=== PATIENT | female | born 1990 | race Caucasian/White ===

== ENCOUNTER → 2018-02-27 | Outpatient (CLI) | payer BC ==
[2018-02-27 17:32] LABS: Anion Gap 11 mmol/L; Blood Urea Nitrogen 3 mg/dL (7-17); Calcium 8.4 mg/dL (8.4-10.2); Carbon Dioxide 23 mmol/L (22-30); Chloride 104 mmol/L (98-107); Glucose 73 mg/dL (74-99); Potassium 4.1 mmol/L (3.5-5.1); Sodium 138 mmol/L (137-145)
== END | disposition home or self-care (01) ==
LOC: LABWHC1 16:52
PROVIDERS: ATTEND Family Medicine
DX: R60.0 Localized edema (principal)
CPT/HCPCS: 36415; 80048

== ENCOUNTER → 2018-07-30 | Outpatient (CLI) | payer BC ==
[2018-07-30 14:19] LABS: Appearance,Urine Clear (Clear); Basophils % (A) 1 %; Bilirubin,Urine Negative (Negative); Blood,Urine Negative (Negative); Color,Urine Light Yellow; Eosinophils # (A) 0.1 k/uL (0-0.7); Eosinophils % (A) 2 %; Glucose,Urine (UA) Negative (Negative); HCT 42.6 % (34.0-46.0); Ketones,Urine Negative (Negative); Leukocyte Esterase,Urine Negative (Negative); Lymphocytes % (A) 28 %; MCH 30.1 pg (25.0-35.0); MCHC 32.8 g/dL (31.0-37.0); MCV 91.6 fL (80.0-100.0); Mean Platelet Volume 6.4; Monocytes # (A) 0.4 k/uL (0-1.0); Monocytes % (A) 5 %; Neutrophils # (A) 4.4 k/uL (1.3-7.7); Neutrophils % (A) 62 %; Nitrite,Urine Negative (Negative); Platelet Count 273 k/uL (150-450); Protein,Urine Negative (Negative); RBC 4.65 m/uL (3.80-5.40); RDW 13.3 % (11.5-15.5); Specific Gravity,Urine 1.004 (1.001-1.035); Urobilinogen,Urine <2.0 mg/dL (<2.0)
[2018-07-30 17:39] LABS: Erythrocyte Sedimentation Rate 12 mm/hr (0-20)
[2018-07-30 20:28] LABS: Calcium 7.8 mg/dL (8.7-10.3); Carbon Dioxide 22.3 mmol/L (21.6-31.8); Chloride 108 mmol/L (96-109); Glucose 76 mg/dL (70-110); Potassium 3.9 mmol/L (3.5-5.5); Sodium 141 mmol/L (135-145); Total Protein 6.1 g/dL (6.2-8.2)
[2018-07-30 20:29] LABS: ALT 18 U/L (8-44); AST 18 U/L (13-35); Albumin/Globulin Ratio 2.21 (1.20-2.10); Alkaline Phosphatase 51 U/L (41-126); C Reactive Protein <0.4 mg/dL (0.0-0.8); Globulin 1.9 g/dL (1.6-3.3); Total Bilirubin 0.4 mg/dL (0.3-1.2)
== END ==
LOC: LABWHC1 13:47
PROVIDERS: ATTEND Allergy & Immunology
DX: L50.9 Urticaria, unspecified (principal)
CPT/HCPCS: 36415; 80053; 81003; 85025; 85652; 86038; 86140; 86160; 86162

== ENCOUNTER → 2018-11-21 | Outpatient (CLI) | payer BC | LOC: LABWHC1 07:43 | PROVIDERS: ATTEND Internal Medicine | DX: R53.83 Other fatigue (principal); R63.5 Abnormal weight gain | CPT/HCPCS: 36415; 82533 ==

== ENCOUNTER 2019-01-05 13:33 | Emergency (ER) | payer BC ==
[2019-01-05 13:40] VITALS: BP 128/87; PULSE 87; RESP 16; TEMP 98.9
[2019-01-05] MEDS ORDERED: DEXAMETHASONE SOD PHOSPHATE 10 MG/ML 1 ML VIAL IM STA (14:07)
--- NOTE | 2019-01-05 14:19 | ED ---
General Adult HPI - General Chief complaint: Skin/Abscess/Foreign Body Stated complaint: Rash on arms Time Seen by Provider: 01/05/19 14:04 Source: patient Mode of arrival: ambulatory Limitations: no limitations - History of Present Illness Initial comments: Patient is a 28-year-old female presenting to emergency Department with a rash for 2 hours. Patient reports become this morning with a rash on bilateral forearms and hands. Patient denies fever but states the rash is itchy. Patient reports the rash has also appeared on bilateral lower extremities, especially on lower legs and feet. Patient reports using Benadryl cream with minimal improvement. Patient reports all her vaccinations are up-to-date. Patient denies using any recent medication or changes in shampoos or soaps. - Related Data Home Medications Medication Instructions Recorded Confirmed Albuterol Inhaler [Ventolin 1 - 2 puff INHALATION Q6HR PRN 11/09/14 11/18/15 Inhaler] Cholecalciferol [Vitamin D3] 5,000 unit PO DAILY@1200 11/09/14 11/18/15 Fexofenadine HCl [Keyla Allergy] 180 mg PO DAILY 11/09/14 11/22/15 Levothyroxine Sodium [Synthroid] 200 mcg PO DAILY 11/09/14 11/22/15 Multivitamins, Thera [Theragran] 1 each PO DAILY 11/09/14 11/22/15 Calcitriol 0.25 mcg PO DAILY 11/18/15 11/18/15 Calcium Carbonate/Vitamin D3 1 each PO DAILY 11/18/15 11/22/15 [Calcium 600 + Vit D Tablet] Previous Rx's Medication Instructions Recorded predniSONE 10 mg PO DAILY #3 tab 01/05/19 Allergies Allergy/AdvReac Type Severity Reaction Status Date / Time apple Allergy throat Verified 01/05/19 13:40 swelling banana Allergy throat Verified 01/05/19 13:40 swelling Fish Containing Products Allergy Unknown Verified 01/05/19 13:40 latex Allergy Swelling Verified 01/05/19 13:40 Milk Containing Products Allergy THROAT Verified 01/05/19 13:40 SWELLING shellfish derived [Shellfish] Allergy Swelling Verified 01/05/19 13:40 soy Allergy Unknown Verified 01/05/19 13:40 Review of Systems ROS Statement: Those systems with pertinent positive or pertinent negative responses have been documented in the HPI. ROS Other: All systems not noted in ROS Statement are negative. Past Medical History Past Medical History: Asthma, Cancer, GI Bleed, Thyroid Disorder Additional Past Medical History / Comment(s): THYROID CANCER History of Any Multi-Drug Resistant Organisms: None Reported Past Surgical History: Cholecystectomy Additional Past Surgical History / Comment(s): THYROID, Past Anesthesia/Blood Transfusion Reactions: No Reported Reaction Past Psychological History: No Psychological Hx Reported Smoking Status: Never smoker - Past Family History Mother Additional Family Medical History / Comment(s): MS General Exam Limitations: no limitations Course Vital Signs 01/05/19 01/05/19 13:37 14:21 Temperature 98.9 F 98.9 F Pulse Rate 87 87 Respiratory 16 16 Rate Blood Pressure 128/87 128/87 O2 Sat by Pulse 98 98 Oximetry Medical Decision Making - Medical Decision Making Patient is a 28-year-old female presents emergency Department with a rash. Based on history and physical examination I suspect the patient to have a viral exanthem. Patient was given Decadron and prescribed 3 days of oral prednisone. Patient advised to start the prednisone after 3 days. Patient advised to follow-up with primary care. Patient advised to return to emergency department if symptoms worsen. Disposition Clinical Impression: Rash Disposition: HOME SELF-CARE Condition: Stable Instructions (If sedation given, give patient instructions): Viral Exanthem (ED) Additional Instructions: Please take prescribed medication as directed. Please follow with primary care. Please return to the emergency department if symptoms worsen. Prescriptions: predniSONE 10 mg PO DAILY #3 tab Is patient prescribed a controlled substance at d/c from ED?: No Referrals: Eagle Winters MD [Primary Care Provider] - 1-2 days Time of Disposition: 14:18
== END 2019-01-05 14:21 | disposition home or self-care (01) ==
LOC: EC 13:33
DX: R21 Rash and other nonspecific skin eruption (principal); J45.909 Unspecified asthma, uncomplicated; E07.9 Disorder of thyroid, unspecified; Z79.890 Hormone replacement therapy; Z79.51 Long term (current) use of inhaled steroids; Z91.018 Allergy to other foods; Z91.013 Allergy to seafood; Z91.040 Latex allergy status; Z79.899 Other long term (current) drug therapy; Z85.850 Personal history of malignant neoplasm of thyroid
CPT/HCPCS: 99282; 96372; J1100

== ENCOUNTER 2019-08-10 11:39 | Emergency (ER) | payer BC ==
[2019-08-10 11:52] VITALS: TEMP 98.1
[2019-08-10 12:34] LABS: Basophils # (A) 0.1 k/uL (0-0.2); Basophils % (A) 1 %; Eosinophils # (A) 0.3 k/uL (0-0.7); Eosinophils % (A) 4 %; HCT 42.9 % (34.0-46.0); HGB 13.8 gm/dL (11.4-16.0); Lymphocytes # (A) 1.5 k/uL (1.0-4.8); Lymphocytes % (A) 23 %; MCH 29.2 pg (25.0-35.0); MCHC 32.1 g/dL (31.0-37.0); MCV 90.7 fL (80.0-100.0); Monocytes # (A) 0.3 k/uL (0-1.0); Monocytes % (A) 4 %; Neutrophils # (A) 4.4 k/uL (1.3-7.7); Neutrophils % (A) 66 %; Platelet Count 254 k/uL (150-450); RBC 4.72 m/uL (3.80-5.40); RDW 12.7 % (11.5-15.5); WBC 6.6 k/uL (3.8-10.6)
[2019-08-10 12:43] LABS: ALT 23 U/L (4-34); AST 25 U/L (14-36); African American GFR (CKD) >90 (>60 ml/min/1.73 sqM); Alkaline Phosphatase 53 U/L (38-126); Anion Gap 7 mmol/L; Blood Urea Nitrogen 10 mg/dL (7-17); Calcium 8.3 mg/dL (8.4-10.2); Carbon Dioxide 23 mmol/L (22-30); Chloride 108 mmol/L (98-107); Glucose 86 mg/dL (74-99); Non-African American GFR(CKD) >90 (>60 ml/min/1.73 sqM); Potassium 4.1 mmol/L (3.5-5.1); Sodium 138 mmol/L (137-145); Total Bilirubin 0.5 mg/dL (0.2-1.3); Total Protein 7.1 g/dL (6.3-8.2)
[2019-08-10] MEDS ORDERED: KETOROLAC 30 MG/ML 1 ML VIAL IVP STA (12:48)
[2019-08-10 12:53] LABS: INR 0.9 (<1.2); Partial Thromboplastin Time 22.4 sec (22.0-30.0); Prothrombin Time 9.8 sec (9.0-12.0)
--- NOTE | 2019-08-10 13:09 | XR ---
EXAMINATION TYPE: XR chest 2V DATE OF EXAM: 08/10/2019 COMPARISON: NONE HISTORY: Dry cough and stabbing chest pain. TECHNIQUE: Frontal and lateral views of the chest are obtained. FINDINGS: There is no focal air space opacity, pleural effusion, or pneumothorax seen. The cardiac silhouette size is within normal limits. The osseous structures are intact. Cholecystectomy clips a re present. IMPRESSION: No acute cardiopulmonary process.
--- NOTE | 2019-08-10 13:28 | ED ---
Chest Pain HPI - General Chief Complaint: Chest Pain Stated Complaint: chest pain/pressure Time Seen by Provider: 08/10/19 12:28 Source: patient Mode of arrival: ambulatory Limitations: no limitations - History of Present Illness Initial Comments: Patient is a 28-year-old female presenting to emergency Department with complaints of acute onset of chest pain that started 2 hours prior to arrival. Patient states she was going back into work when she noticed pain and pressure over her midsternum. Patient states the pain has been continuous since onset. She admits to very mild shortness of breath. No recent fever, chills, abdominal pain, nausea, vomiting. She does have a history of thyroid cancer which she takes levothyroxin and calcium for post surgery. She states she has never had this kind of pain before. She denies any palpitations. She has no other complaints at this time. She does not smoke, denies any other drug use. Patient was slightly tachycardia at 101 upon arrival, rest of vitals normal. - Related Data Home Medications Medication Instructions Recorded Confirmed Albuterol Inhaler [Ventolin 1 - 2 puff INHALATION Q6HR PRN 11/09/14 11/18/15 Inhaler] Cholecalciferol [Vitamin D3] 5,000 unit PO DAILY@1200 11/09/14 11/18/15 Fexofenadine HCl [Keyla Allergy] 180 mg PO DAILY 11/09/14 11/22/15 Levothyroxine Sodium [Synthroid] 200 mcg PO DAILY 11/09/14 11/22/15 Multivitamins, Thera [Theragran] 1 each PO DAILY 11/09/14 11/22/15 Calcitriol 0.25 mcg PO DAILY 11/18/15 11/18/15 Calcium Carbonate/Vitamin D3 1 each PO DAILY 11/18/15 11/22/15 [Calcium 600 + Vit D Tablet] Previous Rx's Medication Instructions Recorded predniSONE 10 mg PO DAILY #3 tab 01/05/19 Allergies Allergy/AdvReac Type Severity Reaction Status Date / Time apple Allergy throat Verified 01/05/19 13:40 swelling banana Allergy throat Verified 01/05/19 13:40 swelling Fish Containing Products Allergy Unknown Verified 01/05/19 13:40 latex Allergy Swelling Verified 01/05/19 13:40 Milk Containing Products Allergy THROAT Verified 01/05/19 13:40 SWELLING shellfish derived [Shellfish] Allergy Swelling Verified 01/05/19 13:40 soy Allergy Unknown Verified 01/05/19 13:40 Review of Systems ROS Statement: Those systems with pertinent positive or pertinent negative responses have been documented in the HPI. ROS Other: All systems not noted in ROS Statement are negative. EKG Findings - EKG Comments: EKG Findings:: Ventricular rate 97, MI interval 1:30, QTC 467. Normal sinus rhythm. Possible left atrial enlargement. No acute ST segment changes. Slight Q-wave and T-wave inversion in lead 3. Past Medical History Past Medical History: Asthma, Cancer, GI Bleed, Thyroid Disorder Additional Past Medical History / Comment(s): THYROID CANCER History of Any Multi-Drug Resistant Organisms: None Reported Past Surgical History: Cholecystectomy Additional Past Surgical History / Comment(s): THYROID, Past Anesthesia/Blood Transfusion Reactions: No Reported Reaction Past Psychological History: No Psychological Hx Reported Smoking Status: Never smoker Past Alcohol Use History: None Reported Past Drug Use History: None Reported - Past Family History Mother Additional Family Medical History / Comment(s): MS General Exam - General Exam Comments Initial Comments: GENERAL: Well-appearing, well-nourished and in no acute distress. HEAD: Atraumatic, normocephalic. EYES: Pupils equal round and reactive to light, extraocular movements intact, sclera anicteric, conjunctiva are normal. ENT: TMs normal, nares patent, oropharynx clear without exudates. Moist mucous membranes. NECK: Normal range of motion, supple without lymphadenopathy or JVD. LUNGS: Breath sounds clear to auscultation bilaterally and equal. No wheezes rales or rhonchi. HEART: Regular rate and rhythm without murmurs, rubs or gallops. Mild pain with palpation of the sternum. ABDOMEN: Soft, nontender, normoactive bowel sounds. No guarding, no rebound. No masses appreciated. : Deferred EXTREMITIES: Normal range of motion, no pitting or edema. No clubbing or cyanosis. NEUROLOGICAL: Normal speech, normal gait. PSYCH: Normal mood, normal affect. SKIN: Warm, Dry, normal turgor, no rashes or lesions noted. Limitations: no limitations Course Vital Signs 08/10/19 08/10/19 08/10/19 11:49 13:07 16:42 Temperature 98.1 F Pulse Rate 101 H 87 75 Respiratory 18 16 18 Rate Blood Pressure 126/81 109/80 126/90 O2 Sat by Pulse 98 99 100 Oximetry Chest Pain MDM - MDM Patient is a 28-year-old female presenting with an acute onset of midsternal chest pain about 2 hours prior to arrival. She has no history of heart disease, blood clots. Her vitals are stable upon arrival. EKG shows no acute changes. Chest x-ray is normal. Lab work shows no acute findings, negative d-dimer, negative Troponin 2. Patient received some fluids as well as Toradol and reports improvement in her symptoms. I discussed these findings with the patient. I suggested this is most likely costochondritis or anxiety related. She will continue to take anti-inflammatories for discomfort. Strict return parameters were discussed with the patient and she verbalized understanding. Patient will follow up with her PCP. She is stable for discharge at this time. Case discussed with Dr. Harris. Disposition Clinical Impression: Chest pain, Costochondritis Disposition: HOME SELF-CARE Condition: Stable Instructions (If sedation given, give patient instructions): Costochondritis (ED) Additional Instructions: Please return to the Emergency Department if symptoms worsen or any other concerns. Follow-up with PCP. A trial of anti-inflammatories for 3-4 days. Is patient prescribed a controlled substance at d/c from ED?: No Referrals: Eagle Winters MD [Primary Care Provider] - 1-2 days
[2019-08-10 16:48] VITALS: BP 126/90; PULSE 75; RESP 18
== END 2019-08-10 16:48 | disposition home or self-care (01) ==
LOC: EC 11:39
DX: M94.0 Chondrocostal junction syndrome [Tietze] (principal); J45.909 Unspecified asthma, uncomplicated; E07.9 Disorder of thyroid, unspecified; Z79.890 Hormone replacement therapy; Z79.899 Other long term (current) drug therapy; Z91.018 Allergy to other foods; Z91.013 Allergy to seafood; Z91.040 Latex allergy status; Z91.011 Allergy to milk products; Z85.850 Personal history of malignant neoplasm of thyroid
CPT/HCPCS: 36415; 93005; 85379; 80053; 84484; 85025; 85610; 85730; 71046; 99285; 96374; J1885

== ENCOUNTER 2019-08-13 12:22 | Emergency (ER) | payer BC ==
[2019-08-13 12:27] VITALS: RESP 22; TEMP 98.8
--- NOTE | 2019-08-13 12:56 | ED ---
Chest Pain HPI - General Chief Complaint: Chest Pain Stated Complaint: chest pain Time Seen by Provider: 08/13/19 12:33 Source: patient, RN notes reviewed Mode of arrival: ambulatory Limitations: no limitations - History of Present Illness Initial Comments: This is a 28-year-old female with a benign history other than thyroid cancer who is status post resection and treatment who presents with complaints of midsternal chest pain more so on the right. She states that sharp sometimes achy 8/10 severity. She has no cough fevers chills nausea vomiting sweats no recent trauma. She was seen here 3 days ago and diagnosed with costochondritis. She states it feels worse today the workup at that time was negative for any acute findings she has no family history of early heart disease she is not a smoker no recent travel. No other modifying factors she states it does get worse with certain movements especially when she bends over. MD Complaint: chest pain - Related Data Home Medications Medication Instructions Recorded Confirmed Albuterol Sulfate [Proair Hfa] 2 puff INHALATION RT-Q4H PRN 08/13/19 08/13/19 Calcitriol 0.25 mcg PO TID 08/13/19 08/13/19 Calcium Carbonate 500 mg PO TID 08/13/19 08/13/19 Galcanezumab-Gnlm [Emgality] 120 mg SQ QMONTH 08/13/19 08/13/19 Ibuprofen 800 mg PO TID 08/13/19 08/13/19 Levothyroxine Sodium [Tirosint] 200 mcg PO MOTUWETHFRSA 08/13/19 08/13/19 Levothyroxine Sodium [Tirosint] 400 mcg PO JONES 08/13/19 08/13/19 Previous Rx's Medication Instructions Recorded Ketorolac [Toradol] 10 mg PO Q6HR #20 tab 08/13/19 Allergies Allergy/AdvReac Type Severity Reaction Status Date / Time apple Allergy throat Verified 08/13/19 13:34 swelling banana Allergy throat Verified 08/13/19 13:34 swelling Fish Containing Products Allergy Unknown Verified 08/13/19 13:34 latex Allergy Swelling Verified 08/13/19 13:34 Milk Containing Products Allergy THROAT Verified 08/13/19 13:34 SWELLING shellfish derived [Shellfish] Allergy Swelling Verified 08/13/19 13:34 soy Allergy Unknown Verified 08/13/19 13:34 Review of Systems ROS Statement: Those systems with pertinent positive or pertinent negative responses have been documented in the HPI. ROS Other: All systems not noted in ROS Statement are negative. EKG Findings - EKG Results: EKG: interpreted by PILAR BAUGH, sinus rhythm, normal axis, normal QRS, normal ST/T, no acute changes (Normal sinus rhythm rate 75 NM interval 140 QRS duration 82 QT since QTC 32/426 this is compared with an EKG done previously this is compared to an EKG dated 08/10/19) Past Medical History Past Medical History: Asthma, Cancer, GI Bleed, Thyroid Disorder Additional Past Medical History / Comment(s): THYROID CANCER History of Any Multi-Drug Resistant Organisms: None Reported Past Surgical History: Cholecystectomy Additional Past Surgical History / Comment(s): THYROID, Past Anesthesia/Blood Transfusion Reactions: No Reported Reaction Past Psychological History: No Psychological Hx Reported Smoking Status: Never smoker Past Alcohol Use History: None Reported Past Drug Use History: None Reported - Past Family History Mother Additional Family Medical History / Comment(s): MS General Exam - General Exam Comments Initial Comments: This is a well-developed well-nourished awake alert oriented 3 female Limitations: no limitations General appearance: alert, anxious Head exam: Present: atraumatic, normocephalic, normal inspection Eye exam: Present: normal appearance, PERRL, EOMI. Absent: scleral icterus, conjunctival injection, periorbital swelling ENT exam: Present: normal exam, mucous membranes moist Neck exam: Present: normal inspection, full ROM, other (No stridor JVD or bruits). Absent: tenderness, meningismus, lymphadenopathy Respiratory exam: Present: normal lung sounds bilaterally, chest wall tenderness (Reproducible tenderness palpation on the right costal sternal margin no step- off or crepitation). Absent: respiratory distress, wheezes, rales, rhonchi, stridor Cardiovascular Exam: Present: normal rhythm, tachycardia, normal heart sounds. Absent: systolic murmur, diastolic murmur, rubs, gallop, clicks GI/Abdominal exam: Present: soft, normal bowel sounds. Absent: distended, tenderness, guarding, rebound, rigid Extremities exam: Present: normal inspection, full ROM, normal capillary refill. Absent: tenderness, pedal edema, joint swelling, calf tenderness Back exam: Present: normal inspection Neurological exam: Present: alert, oriented X3, CN II-XII intact Psychiatric exam: Present: normal affect, normal mood Skin exam: Present: warm, dry, intact, normal color. Absent: rash Course Vital Signs 08/13/19 08/13/19 08/13/19 12:25 13:00 13:30 Temperature 98.8 F Pulse Rate 111 H 90 72 Respiratory 22 Rate Blood Pressure 125/77 132/98 133/84 O2 Sat by Pulse 98 97 98 Oximetry 08/13/19 08/13/19 14:00 14:30 Temperature Pulse Rate 79 73 Respiratory Rate Blood Pressure 126/90 123/75 O2 Sat by Pulse 100 100 Oximetry Chest Pain MDM - MDM I did review the imaging and report no acute findings. Did discuss the findings with the patient the presentation is consistent with costochondritis she will be continued on anti-inflammatories the ibuprofen does not seem to be helping her she will be placed on Toradol I did recommend warm compresses a follow-up with her doctor. Disposition Clinical Impression: Chest wall syndrome, Costochondritis Disposition: HOME SELF-CARE Condition: Good Instructions (If sedation given, give patient instructions): Costochondritis (ED) Prescriptions: Ketorolac [Toradol] 10 mg PO Q6HR #20 tab Is patient prescribed a controlled substance at d/c from ED?: No Referrals: Eagle Winters MD [Primary Care Provider] - 1-2 days
[2019-08-13 13:21] LABS: Basophils # (A) 0.1 k/uL (0-0.2); Basophils % (A) 1 %; Eosinophils # (A) 0.3 k/uL (0-0.7); Eosinophils % (A) 4 %; HCT 43.6 % (34.0-46.0); Lymphocytes # (A) 1.3 k/uL (1.0-4.8); Lymphocytes % (A) 20 %; MCH 28.9 pg (25.0-35.0); MCV 90.2 fL (80.0-100.0); Mean Platelet Volume 7.2; Monocytes # (A) 0.3 k/uL (0-1.0); Monocytes % (A) 4 %; Neutrophils # (A) 4.7 k/uL (1.3-7.7); Neutrophils % (A) 70 %; Platelet Count 279 k/uL (150-450); RBC 4.83 m/uL (3.80-5.40); RDW 12.5 % (11.5-15.5); WBC 6.7 k/uL (3.8-10.6)
--- NOTE | 2019-08-13 13:32 | XR ---
EXAMINATION TYPE: XR chest 2V DATE OF EXAM: 08/13/2019 COMPARISON: Chest x-ray 3 days ago. HISTORY: Chest pain. TECHNIQUE: Frontal and lateral views of the chest are obtained. FINDINGS: Overlying EKG leads redemonstrated. There is no focal air space opacity, pleural effusion, or pneumothorax seen. The cardiac silhouette size is within normal limits. The osseous structures are intact. Cholecystectomy clips noted on lateral view. IMPRESSION: No acute process. No significant change from prior.
[2019-08-13 13:33] LABS: ALT 20 U/L (4-34); AST 23 U/L (14-36); African American GFR (CKD) >90 (>60 ml/min/1.73 sqM); Albumin 3.9 g/dL (3.5-5.0); Alkaline Phosphatase 49 U/L (38-126); Anion Gap 9 mmol/L; Blood Urea Nitrogen 9 mg/dL (7-17); Calcium 8.2 mg/dL (8.4-10.2); Carbon Dioxide 20 mmol/L (22-30); Chloride 110 mmol/L (98-107); Creatine Kinase 71 U/L (30-135); Glucose 76 mg/dL (74-99); Magnesium 1.8 mg/dL (1.6-2.3); Non-African American GFR(CKD) >90 (>60 ml/min/1.73 sqM); Sodium 139 mmol/L (137-145); Total Bilirubin 0.5 mg/dL (0.2-1.3); Total Protein 6.9 g/dL (6.3-8.2)
[2019-08-13 13:39] LABS: D-Dimer 0.42 mg/L FEU (<0.60); INR 0.9 (<1.2); Partial Thromboplastin Time 22.6 sec (22.0-30.0); Prothrombin Time 9.7 sec (9.0-12.0)
[2019-08-13] MEDS ORDERED: KETOROLAC 30 MG/ML 1 ML VIAL IVP STA (14:18)
[2019-08-13 14:33] VITALS: BP 123/75; PULSE 73
== END 2019-08-13 14:49 | disposition home or self-care (01) ==
LOC: EC 12:22
DX: M94.0 Chondrocostal junction syndrome [Tietze] (principal); J45.909 Unspecified asthma, uncomplicated; E07.9 Disorder of thyroid, unspecified; Z79.890 Hormone replacement therapy; Z91.018 Allergy to other foods; Z91.013 Allergy to seafood; Z91.040 Latex allergy status; Z85.850 Personal history of malignant neoplasm of thyroid
CPT/HCPCS: 36415; 93005; 85379; 83880; 80053; 82550; 83690; 83735; 84484; 85025; 85610; 85730; 71046; 99285; 96374; J1885